=== PATIENT | female | born 1935 | race Caucasian/White ===

== ENCOUNTER 2017-04-10 11:00 | Inpatient (IN) | payer MEDICARE, BC ==
[~2017-04-10] VITALS: Ht 165.1 cm; Wt 87.0 kg
--- NOTE | ~2017-04-10 | DS ---
PATIENT'S NAME: MARCELO HUSAIN [facility] AGE: 82 Y [address] ROOM: [address] [address] LOCATION: GPCU ADMIT DATE: 04/10/2017 Discharge Summary DISCHARGE DATE: 04/15/2017 FAMILY PHYSICIAN: Jennyfer Ellington MD ATTENDING PHYSICIAN: Terry Coats PRINCIPAL DIAGNOSES: 1. Sick sinus syndrome, status post dual-chamber permanent pacemaker insertion. 2. Transient ischemic attack. 3. Dementia. 4. Multinodular goiter. 5. Paroxysmal atrial fibrillation, not on any anticoagulation. 6. Essential hypertension. HOSPITAL COURSE: Please reference any of the admitting data to the history and physical as dictated by Dr. Terry Coats. An 82-year-old female who presented to the outside hospital with symptomatic pauses as well as mental status changes with concern for stroke. CT scan showed a possible left MCA distribution stroke, but not definitive. She was placed in the Intensive Care Unit under the acute stroke management on tPA order set; and because of her symptomatic sinus pauses, temporary pacemaker was placed. Because of the need for urgent MRI, Cardiology went ahead and required removal of the pacing catheter. This was done without complication and then, after MRI was complete, a 2nd pacing catheter was done in the Intensive Care Unit at the bedside with confirmation by portable chest x-ray. She was observed on telemetry without complication. The MRI taken did not show any acute findings other than an aging brain. There was no evidence any acute stroke. Further investigation of the MRA of the neck did not show any stenosis. Echocardiogram showed a left ventricular ejection fraction at 65% to 70% with [id number] concentric left ventricular hypertrophy. The left atrium was moderately dilated. There is also noted severe annular calcification of posterior mitral valve leaflet. Giving us the impression that most likely this was transient ischemic attack given her paroxysmal AFib history, she was kept on aspirin and statin therapy as she had refused anticoagulation in the past. She then proceeded to have a dual-chamber pacemaker inserted with Dr. Eliseo Kauffman and Dr. Naik on 04/11/2017. She did receive preoperative and postoperative Ancef antibiotic. She tolerated the procedure well. She was made no weightbearing to the left shoulder and placed in immobilizer without any complication. Device function check was normal on postoperative day #1. She did require titration of her blood pressure medicine and anti-rhythm medicine to include amlodipine, spironolactone, and propafenone. She tolerated these medicines well. PATIENT'S NAME: MARCELO HUSAIN [facility] AGE: 82 Y [address] ROOM: [address] [place], [place] [address] LOCATION: GPCU ADMIT DATE: 04/10/2017 Discharge Summary DISCHARGE DATE: 04/15/2017 FAMILY PHYSICIAN: Jennyfer Ellington MD ATTENDING PHYSICIAN: Terry Coats The patient underwent MRI of the neck with incidental finding showing a large thyroid. Further investigation of her thyroid showed a normal TSH at 0.772 and a free T4 of 1.0. We went ahead and obtained a soft-tissue ultrasound of her neck, which showed an impression of a multinodular goiter with marked enlargement of the right lobe due to a dominant nodular mass occupying the central and lower gland. Appearance was nontoxic; therefore, no further workup was obtained. She also received physical, occupational, and speech therapy. Her cognition was evident of poor short-term memory consistent with findings of dementia. Neurology started the patient on Namenda 5 mg p.o. at bedtime with titrating dose in 1 week with goal therapy of 10 mg twice daily with further outpatient evaluation. The patient was felt stable enough for discharge; however, not well enough to go home. Care Management assisted and the patient will go to [place] swing bed for further restorative cares and observation of her condition. CONSULTING PROVIDERS: 1. Dr. Naik, Cardiology. 2. Dr. Kauffman, Cardiothoracic Surgery. 3. Dr. Robert Harris, Physiatry. 4. Dr. Virgil Lopez, Neurology. PROCEDURES: Temporary and permanent pacemaking placement by Dr. Kauffman and Dr. Naik. LABORATORY DATA: Pertinent lab findings to include: Negative cardiac enzymes. A pro-BNP of 304. Most recent CBC on 04/12/2017 was within normal limits with a white blood cell count of 7.1, hemoglobin of 12.4, hematocrit of 37.2, and platelet count of 146. Chemistry panel within the same showed no remarkable results on 04/12/2017 was glucose 103, BUN of 8, creatinine 0.7, sodium 140, potassium 3.6, chloride of 109, CO2 of 24, calcium 8.2, albumin is 2.9, phosphorus is 2.0, magnesium 2.1, and anion gap of 10.6. Cholesterol panel showed a total cholesterol of 171, triglyceride of 111, HDL of 40, and LDL 109. A urinalysis showed yellow clear with specific gravity 1.015, pH of 6.0, PATIENT'S NAME: MARCELO HUSAIN [facility] AGE: 82 Y [address] ROOM: [address] [place], [place] [address] LOCATION: GPCU ADMIT DATE: 04/10/2017 Discharge Summary DISCHARGE DATE: 04/15/2017 FAMILY PHYSICIAN: Jennyfer Ellington MD ATTENDING PHYSICIAN: Terry Coats leukocytes 100, nitrites negative, protein 15, glucose negative, ketone negative, urobilinogen normal, bilirubin negative. Microanalysis showed 10 blood, 5 to 10 white blood cells, 0 to 2 red blood cells, 5 to 10 epithelial cells, few bacteria, and 2+ amorphous material. Free T4 was 1.0. TSH was 0.772. RADIOLOGIC IMAGING: Include MRI of the brain with and without contrast showed an aging brain with no acute findings and no acute stroke. An MRA of the neck with and without contrast showed a large mass in the right neck, possible thyroid origin, with recommendations for soft-tissue of the neck CT. Essentially normal MRI with no stenosis. Chest x-ray showed temporary pacer placement and postoperative pacemaker placement in satisfactory position. Soft tissue of the neck thyroid showed multinodular goiter with marked enlargement of the right lobe due to the dominant nodule or mass occupying the central and lower gland measuring 59 x 65 x 54 mm. DISCHARGE MEDICATIONS: 1. Amlodipine 10 mg p.o. everyday. 2. Aspirin 325 mg p.o. everyday. 3. Lipitor 40 mg p.o. everyday. 4. Namenda 5 mg p.o. every night at bedtime, stop date 04/20/2017 at 2100 hours. 5. Namenda 5 mg p.o. twice daily, start date 04/21/2017 at 0900 hours. 6. Metoprolol succinate 25 mg p.o. everyday. 7. Protonix 40 mg p.o. everyday at 0700 hours. 8. Propafenone 150 mg p.o. 3 times daily. 9. Aldactone 25 mg p.o. everyday. 10. Tylenol 650 mg p.o. every 4 hours as needed for pain or fever. DISCHARGE INSTRUCTIONS: The patient will discharge to [facility] under the care of her primary care doctor, Dr. Jennyfer Ellington. I spoke with Dr. Ellington on the phone regarding the patient's hospitalization and transfer of care. She graciously accepted. The patient will transport by private auto with her family. Followup appointments with Neurology and Dr. Lopez in 1 month to titrate the Namenda according to discharge medication orders. She should also follow up with Dr. Naik in 2 weeks in [place]. PATIENT'S NAME: MARCELO HUSAIN [facility] AGE: 82 Y [address] ROOM: [address] [place], [place] [address] LOCATION: GPCU ADMIT DATE: 04/10/2017 Discharge Summary DISCHARGE DATE: 04/15/2017 FAMILY PHYSICIAN: Jennyfer Ellington MD ATTENDING PHYSICIAN: Terry Coats Diet is to remain cardiac low-fat, low-salt, low-cholesterol. Weightbearing status is no left upper extremity range of motion with immobilizer in place at all times and okay to remove for shower. Therapies to include occupational, physical, and speech therapy for cognitive reasons to evaluate and treat it as indicated. Her rehab potential is good. Her discharge potential is good. The patient and family are well aware of her condition and prognosis. All questions were answered with statements of satisfaction. We do recommend continued monitoring of her multinodular goiter as an outpatient perspective. Thank you for allowing us to participate in the care of this patient while at [facility]. ROBYN MARKS APRN, APRN FOR MD BERENICE ELMORE/harris /[id number] d: t: 04/16/17 0339, DISCHARGE SUMMARY
--- NOTE | ~2017-04-10 | CON ---
PATIENT'S NAME: MARCELO HUSAIN [facility] AGE: 82 Y [address] ROOM: [address] [address] LOCATION: GPCU ADMIT DATE: 04/10/2017 Consultation DISCHARGE DATE: FAMILY PHYSICIAN: GABBIE SAHNI MD ATTENDING PHYSICIAN: SHASTA SANTOS REFERRING PHYSICIAN: Eliseo Kauffman DO HISTORY OF PRESENT ILLNESS: This is an 82-year-old lady, who is transferred emergently from [place] because of symptomatic sick sinus syndrome with episodes of unconsciousness. She has a history of paroxysmal atrial fibrillation that was diagnosed several years ago and has not had recurrence on oral propafenone although her compliance with these medications is debatable. She also had history of hypertension and dyslipidemia but discontinued treatment for these conditions on her own. She has a degree of dementia, but she still lives in her own house, and her son lives next door. She presented to [facility] on with complaint of right facial edema and some facial droop. There was concern for a stroke, but CT of the head did not show any acute abnormalities. The patient was started on antibiotics. She was monitored on telemetry, and she had at least 2 episodes of long pauses associated with unconsciousness. At that point, I was consulted and I accepted the patient in transfer. REVIEW OF SYSTEMS: She can still drive locally. She is unable to manage her finances. She does not get lost. She does not have frequent falls. She has no history of cerebrovascular accident or myocardial infarction. Remaining systems negative. FAMILY HISTORY: Noncontributory. PHYSICAL EXAMINATION: VITAL SIGNS: She is 5 feet 5 inches. Weight is 89.3 kg. Blood pressure was on arrival at 126/60 with heart rate of 60. GENERAL: She was awake, consented verbally to the procedure, and denied any pain. HEAD: Normocephalic and atraumatic. NECK: Supple. No jugular venous distention. No carotid bruits. CHEST: Lungs are clear. HEART: Regular first and second heart sounds. ABDOMEN: Obese. LOWER EXTREMITIES: No peripheral edema. PLAN: We will proceed with emergent transvenous temporary pacing and then we will consult Dr. Kauffman for permanent device in a.m. PATIENT'S NAME: MARCELO HUSAIN [facility] AGE: 82 Y [address] ROOM: [address] [address] LOCATION: [facility] ADMIT DATE: 04/10/2017 Consultation DISCHARGE DATE: FAMILY PHYSICIAN: GABBIE SAHNI MD ATTENDING PHYSICIAN: SHASTA SANTOS Thank you for allowing me to participate in the care of your patient. EM BECKWITH MD PE/modrehana /[id number] d: 04/12/17101 t: 04/15/17 0802, CONSULTATION REPORT
--- NOTE | ~2017-04-10 | ECHO ---
Transthoracic Echocardiography Report (TTE) Demographics Patient Name MARCELO HUSAIN Date of Study 04/10/2017 Patient Number [id number] Visit Number [id number] Date of 1935 Room Number G6208 Gender Female Number Age 82 year(s) Referring [facility] Specialist Marlen Knox RDCS, Physician Terry RVT, RDMS, HAMMER HEATER Physician Interpreting Efstratiou Panayotis A Code And Test Clerk Physician MD Supervising Ordering Efstratiou Panayotis A MD/MLP Physician MD Nurse Stress Lumber Piler Conclusions Summary Technically difficult exam. The estimated left ventricular ejection fraction is 65-70%. Mild to moderate concentric left ventricular hypertrophy. The left atrium is moderately dilated by LA volume index measurement. Left pleural effusion noted. Severe annular calcification of the posterior MV leaflet. Normal right atrial size. Redundant interatrial septum. Device lead seen in the right atrium. Procedure Type of Study TTE procedure:2D Echocardiogram, M-Mode, Doppler , Color Doppler. Procedure Date Date: 04/10/2017 Start: 04:28 PM Study Location: Inpatient Portable Technical Quality: Fair due to body habitus. Indications:CVA. Additional Indications:Syncope Appropriate Use Criteria: 9 Patient Status: Timed Rhythm: NSR HR: 65 bpm BP: 129/59 mmHg M-Mode/2D Measurements LV Diastolic Dimension: 4.35 cm LV Systolic Dimension: 1.94 cm LV Septum Diastolic: 1.31 cm LV PW Diastolic: 1.22 cm Cardiac Output: 6.76 l/min LA volume: 93 ml RV Diastolic Dimension: 2.5 cm LVOT: 1.9 cm LVOT VTI: 36.7 cm LV Stroke volume: 104 ml RV Mid: 3.3 cm RV Length: 5.8 cm TAPSE: 2.5 cm TDI-S': 15 cm/s Doppler Measurements AV Peak Velocity: 1.49 m/s MV Peak E-Wave: 0.79 m/s AV Peak Gradient: 8.88 mmHg MV Peak A-Wave: 1.08 m/s AV Mean Gradient: 4 mmHg MV E/A Ratio: 0.73 LVOT Peak Velocity: 1.35 m/s MV P1/2t: 132 msec TR Gradient:17.14 mmHg PV Peak Velocity: 0.91 m/s Estimated RAP:8 mmHg PV Peak Gradient: 3.32 mmHg Estimated RVSP: 25 mmHg Estimated PASP: 25.14 mmHg E' Septal Velocity: 0.08 m/s A' Septal Velocity: 0.11 m/s E' Lateral Velocity: 0.07 m/s A' Lateral Velocity: 0.13 m/s Findings Left Ventricle Normal left ventricular systolic function. Normal left ventricular chamber size. Mild to moderate concentric left ventricular hypertrophy. Diastolic assessment reveals Grade I diastolic dysfunction. Right Ventricle Normal right ventricle structure and function. Left Atrium The left atrium is moderately dilated by LA volume index measurement. Right Atrium Normal right atrial size. Redundant interatrial septum. Device lead seen in the right atrium. Mitral Valve Severe annular calcification of the posterior MV leaflet. Cannot rule this out as a source of cardiac emboli. Moderate calcification of the mitral valve. Trivial mitral regurgitation by color Doppler. Mild mitral stenosis. Aortic Valve The aortic valve is mildly sclerotic. Tricuspid Valve Normal tricuspid valve structure and function. Trivial tricuspid regurgitation by color Doppler. Pulmonic Valve Normal pulmonic valve structure and function. Pericardial Effusion No evidence of pericardial effusion. Miscellaneous Visualized portions of the aortic root and ascending aorta appear normal in size. Pleural Effusion Left pleural effusion noted. Contractility Score LV regional wall motion:(0-Non visualized 1-Normal 2-Hypokinesis 3-Akinesis 4-Dyskinesis 5-Aneurysm) Signature dtt: Donnie Naik dtd: 04/10/17 1628 Physician Self Edit
--- NOTE | ~2017-04-10 | OR ---
PATIENT'S NAME: MARCELO HUSAIN [facility] AGE: 82 Y [address] ROOM: [address] [address] LOCATION: GPCU ADMIT DATE: 04/10/2017 OR/Procedure Report DISCHARGE DATE: FAMILY PHYSICIAN: GABBIE SAHNI MD ATTENDING PHYSICIAN: SHASTA SANTOS SURGEON: Em Beckwith MD MANAGER DAIRY: DATE OF PROCEDURE: 04/10/2017 PROCEDURE PERFORMED: Temporary transvenous pacemaker. INDICATIONS FOR PROCEDURE: The patient is an 82-year-old woman, who presented at the [facility] with recurrent loss of consciousness, and she was found to have an intermittent complete heart block. She was transported by air directly to the catheterization laboratory. Consent was obtained verbally. DESCRIPTION OF PROCEDURE: At that point, the transcutaneous pacing was discontinued as the patient had her own intrinsic rhythm. Under direct ultrasound guidance, I accessed the right internal jugular vein first with a micropuncture kit, and then upgraded to a 6-Maltese sheath. Under fluoroscopic guidance, I advanced a balloon-tipped bipolar pacing catheter to the right ventricular apex. We obtained a threshold of less than one milliampere. The pacing catheter was secured in place, and the plan is for the patient to receive a permanent device tomorrow. Five hours later, there was concern that the patient was having an acute ischemic stroke. The CT of the head in [place] was unrevealing, so an MRI was recommended. The radiologist required removal of the pacing catheter. After the magnetic resonance study was completed, I then inserted a second pacing catheter that was done at the bedside in the intensive care unit with electrocardiographic monitoring. The threshold was about one milliampere. The patient's catheter was secured in place. Portable chest x-ray showed that we were pacing the right ventricular outflow tract. POST-PROCEDURE PLAN: Plan remains for a permanent device in a.m. CONCLUSION: Successful transvenous pacing on two occasions as described above. EM BECKWITH MD PATIENT'S NAME: MARCELO HUSAIN [facility] AGE: 82 Y [address] ROOM: [place] [address] [facility] ADMIT DATE: 04/10/2017 OR/Procedure Report DISCHARGE DATE: FAMILY PHYSICIAN: GABBIE SAHNI MD ATTENDING PHYSICIAN: SHASTA SANTOS PE/harris /[id number] d: 04/11/172201 t: 04/16/17 1719, OPERATIVE SUMMARY
--- NOTE | ~2017-04-10 | OR ---
PATIENT'S NAME: MARCELO HUSAIN [facility] AGE: 82 Y [address] ROOM: [place] [address] LOCATION: GPCU ADMIT DATE: 04/10/2017 OR/Procedure Report DISCHARGE DATE: 04/15/2017 FAMILY PHYSICIAN: Jennyfer Ellington MD ATTENDING PHYSICIAN: Terry Coats SURGEON: Eliseo Kauffman DO SUPERVISOR MACHINE SETTER: DATE OF PROCEDURE: 04/11/2017 PREOPERATIVE DIAGNOSIS: Sick sinus syndrome with ventricular pauses greater than 3 seconds. POSTOPERATIVE DIAGNOSIS: Sick sinus syndrome with ventricular pauses greater than 3 seconds. PROCEDURE PERFORMED: Insertion of dual-chamber permanent pacemaker. SURGEON: Donnie Naik MD PROCTORING SURGEON: Eliseo Kauffman DO DESCRIPTION OF PROCEDURE: Mrs. Husain is an 82-year-old white female with the above-noted diagnosis. She has been brought to the operative suite today, sterilely prepped and draped in the usual fashion. Appropriate IV sedation was achieved, 1% lidocaine was used to infiltrate the left infraclavicular space, and Dr. Naik began the procedure. He accessed the left subclavian vein x2, and guidewires were placed under fluoroscopic guidance into the right atrium. An incision was created, and a pocket was formed. Electrocautery was used for hemostasis. Via sheath and dilator assembly, we began to place our leads. The ventricular lead was placed first. It is a [employer] Wanshenevity MRI lead, model 7741, serial #[id number]. It is sensing R-waves of 5.9 mV with a voltage threshold of 0.6 V at 0.5 msec and a pacing impedance of 925 ohms with voltage threshold of 0.7 mA. In a similar fashion, atrial lead was placed into the right atrial appendage. It is a [employer] Ingevity MRI lead, model 7740, serial #[id number]. Sensing P- waves of 2.3 mV with a voltage threshold of 0.9 V at 0.5 msec and pacing impedance of 587 ohms. All leads were now connected to the generator which is a [employer], model L111, serial #[id number]. Leads and generator were placed into the pocket. Appropriate sensing and pacing were noted. The patient was paced DDDR, lower rate limit of 60, maximal tracking rate of 130. The incision was then closed in a layered fashion with 2-0 Vicryl and 4-0 Monocryl, and a pressure dressing was applied. Dr. Naik performed all the portions of this procedure under my direct proctoring. PATIENT'S NAME: MARCELO HUSAIN [facility] AGE: 82 Y [address] ROOM: [place] [address] LOCATION: GPCU ADMIT DATE: 04/10/2017 OR/Procedure Report DISCHARGE DATE: 04/15/2017 FAMILY PHYSICIAN: Jennyfer Ellington MD ATTENDING PHYSICIAN: Terry Coats DO HUNG AVALOS/harris /[id number] d: 04/21/174 t: 04/21/17 2115, OPERATIVE SUMMARY
--- NOTE | ~2017-04-10 | HP ---
PATIENT'S NAME: MARCELO HUSAIN [facility] AGE: 82 Y [address] ROOM: [address] [place] [id number] LOCATION: [facility] ADMIT DATE: 04/10/2017 History & Physical DISCHARGE DATE: FAMILY PHYSICIAN: GABBIE SAHNI MD ATTENDING PHYSICIAN: SHASTA SANTOS DATE OF SERVICE: CHIEF COMPLAINT: Symptomatic bradycardia, cardiac pauses, acute CVA. HISTORY OF PRESENT ILLNESS: This is an 82-year-old female with history of paroxysmal atrial fibrillation, hypertension, and hyperlipidemia who was transferred over to us from [place] after having brief onset of changes in mental status and several 4 to 5- second pauses with significant changes in mentation monitored on tele and was urgently transferred over here for evaluation. The patient was taken directly to the high density press laborer, had an urgent temporary pacemaker placed, and was transferred to the ICU for monitoring. The patient initially presented to [place] yesterday after her son noticed facial droop earlier in the day, which was around 9 or 10'o clock in the morning. He then, later in the afternoon, took her to the emergency room at [place] for evaluation. The patient was admitted and had a CT scan without contrast done which was unremarkable, and the very next day, she was having changes in mentation, likely due to pauses that she was having. In any case, she had a repeat CAT scan done which showed some possible concerning signs for an acute stroke in the left MCA distribution. The patient, during my evaluation today, is awake, alert, and oriented x3. She does have visible facial droop; however, does not appear to be slurring her speech, but did have symptoms of dysarthria on initial presentation yesterday. Although her facial droop is still visible, the patient's son also agrees that her speech is pretty much back to normal at this point. The patient otherwise denies any chest pain, shortness of breath, dizziness, or lightheadedness. Denies any fevers or chills as well. PAST MEDICAL HISTORY: 1. Paroxysmal atrial fibrillation, not on anticoagulation. 2. Essential hypertension. SOCIAL HISTORY: The patient lives at home by herself, but son lives right next to her and helps her out. Denies any smoking, alcohol, or drug use. FAMILY HISTORY: The patient has a history of diabetes in her mother and history of cancer in her father. PATIENT'S NAME: MARCELO HUSAIN [facility] AGE: 82 Y [address] ROOM: [address] [place], [place] [address] LOCATION: [facility] ADMIT DATE: 04/10/2017 History & Physical DISCHARGE DATE: FAMILY PHYSICIAN: GABBIE SAHNI MD ATTENDING PHYSICIAN: SHASTA SANTOS REVIEW OF SYSTEMS: All systems have been reviewed and are all negative except as described in the HPI. PHYSICAL EXAMINATION: VITAL SIGNS: Afebrile, blood pressure 126/71, heart rate 67, and saturating 98% on room air. GENERAL: The patient is awake, alert, and oriented x3. In no acute distress. HEENT: Pupils equal and reactive to light and accommodation. No scleral icterus or conjunctival pallor noted. NEUROLOGIC: The patient has visible left-sided facial droop. She has 4/5 strength in all 4 of her extremities. CHEST: Clear to auscultation bilaterally. HEART: S1 and S2, regular rate and rhythm. ABDOMEN: Soft, nontender, and nondistended. EXTREMITIES: Without edema. SKIN: Scaly patches on bilateral feet consistent with fungal infection. MUSCULOSKELETAL: No joint tenderness, effusion, or erythema noted. LABORATORY AND DIAGNOSTIC DATA: CT scan showing possible left MCA distribution stroke, but not definite. ASSESSMENT AND PLAN: 1. Acute cerebrovascular accident. The patient initially presenting with dysarthria and facial droop. Dysarthria has since resolved, and facial droop is still present. CT scan of her head, which was initially negative. She presented to [place], and repeat scan showing some signals that might suggest a left middle cerebral artery distribution stroke. The patient presented outside the tPA window to [place] last night. We will get MRI and MRA of head and neck and involve Neurology and evaluate. In the meantime, we will start medical management with a statin and aspirin therapy and await Neurology recommendation. 2. Symptomatic sinus pauses. The patient was having 2 to 3 episodes of unresponsiveness at [place] earlier this morning. The patient now has a temporary pacemaker placed, and the plan is to put a permanent pacemaker in the next day or two. 3. Paroxysmal atrial fibrillation. The patient is on rhythm control and rate control medications of metoprolol and propafenone at home. Not on full-dose anticoagulation. Dr. Naik will follow along. 4. Essential hypertension. We will allow for permissive hypertension in the setting of acute stroke and evaluate. 5. Deep venous thrombosis prophylaxis. We will use SCDs for now until degree of stroke is evaluated. PATIENT'S NAME: MARCELO HUSAIN [facility] AGE: 82 Y [address] ROOM: [place] [address] LOCATION: [facility] ADMIT DATE: 04/10/2017 History & Physical DISCHARGE DATE: FAMILY PHYSICIAN: GABBIE SAHNI MD ATTENDING PHYSICIAN: SHASTA SANTOS SHASTA SANTOS MD BG/modl /[id number] D: [id number] T: [id number] HISTORY & PHYSICAL
--- NOTE | ~2017-04-10 | CON ---
PATIENT'S NAME: MARCELO HUSAIN [facility] AGE: 82 Y [address] ROOM: [place] [address] LOCATION: [facility] ADMIT DATE: 04/10/2017 Consultation DISCHARGE DATE: FAMILY PHYSICIAN: GABBIE SAHNI MD ATTENDING PHYSICIAN: SHASTA COATS REFERRING PHYSICIAN: Eliseo Kauffman, DO A consult for Dr. Coats, hospitalist. HISTORY OF PRESENT ILLNESS: This 82-year-old lady, who lives alone next door to her son, who was farming and checks on her regularly, but also states that he is too busy sometimes. She was admitted on 04/10/2017 with brief mental changes, confusion, and left facial droop with no definitive weakness in bilateral upper and lower extremities. She was seen at the outstretching site. CT scan reportedly showed no acute changes. She initially was also dysarthric and was trying to make her words clearer by making more effort to pronounce the words; however, all that has now improved including the facial droop. She denied any shortness of breath, but she continues to be confused and unable to orient herself to place and time. She has no chest pain. No shortness of breath. No similar condition in the past. No cough. No chills. Denied any dizziness. No lightheadedness. No visual cut and/or neglect. PAST MEDICAL HISTORY: 1. She is, at the present time, giving history of paroxysmal atrial fibrillation, not on anticoagulant. 2. Hypertension, essential. PHYSICAL EXAMINATION: NEUROLOGIC: She is now alert, not quite able to orient herself to place and time, and she is not remembering practically. She has no good memory unless it is very distant. Tongue and soft palate are moving symmetrical. Her voice is clear, and she can swallow both solids and fluids without difficulty. She can control her bowel and bladder. She is able to move all four with muscle strength of 4- to 4 over 5. PATIENT'S NAME: MARCELO HUSAIN [facility] AGE: 82 Y [address] ROOM: [place] [address] LOCATION: [facility]PCU ADMIT DATE: 04/10/2017 Consultation DISCHARGE DATE: FAMILY PHYSICIAN: GABBIE SAHNI MD ATTENDING PHYSICIAN: SHASTA COATS MEDICATIONS: She is on the following medications: 1. Amlodipine besylate. 2. [place]. 3. NaCl. 4. Tylenol. 5. Lipitor. 6. Aspirin. 7. Protonix. 8. Cefazolin. 9. Lipitor. LABORATORY DATA: MRI on April 10, 2017, is showing no acute finding. ASSESSMENT AND PLAN: I feel this lady is doing well. She should continue on outpatient if she continues to do well; however, the problem will be to keep her safe. She should be supervised at all times, and I have also advised her strongly not to drive. I will follow alongside with her. If she is discharged, I want to see her in my office in about 10 days. All the above was explained to her in detail and to her son. They verbalized understanding, and I answered all their questions. Thank you for this referral. I will follow alongside with you. SUSAN SEALS MD WMS/modl /[id number] d: 04/12/17 1157 t: 04/13/17 0759, CONSULTATION REPORT
--- NOTE | ~2017-04-10 | CON ---
PATIENT'S NAME: KEYA HUSAIN [facility] AGE: 82 Y [address] ROOM: [address] [address] LOCATION: [facility]PCU ADMIT DATE: 04/10/2017 Consultation DISCHARGE DATE: 04/15/2017 FAMILY PHYSICIAN: Jennyfer Ellington MD ATTENDING PHYSICIAN: Terry Coats DATE OF CONSULTATION: 04/14/2017 REFERRING PHYSICIAN: Eliseo Kauffman, DO NEUROLOGIC CONSULTATION REASON FOR CONSULTATION: The patient was seen on neurologic consultation on 04/14/2017 at the request of Dr. Coats. HISTORY OF PRESENT ILLNESS: Ms. Keya Husain is an 82-year-old female patient with a history of paroxysmal atrial fibrillation, hypertension, and hyperlipidemia. The patient came here from her home in [place] with some brief issues consistent with some confusion. Changes with confusion were very brief and associated with fuzzes in her mentation as far as answering questions and causing brief confusion states. It seems as though the family was saying that she was confused for upwards of 4 to 5 seconds only. They took her into the emergency room and put her on the traffic monitor specialist. They noticed that she was having symptomatic pauses on her EKG. The patient was transferred here for evaluation of her cardiac dysrhythmia and was immediately taken to the catheterization laboratory and had an urgent temporary pacemaker placed present in the ICU. There was a question as to whether the patient actually had a little bit of a facial droop on the morning upon her presentation but by the afternoon, the facial droop was gone. The patient had no evidence of any slurring. She denied she had any focal weakness. There was a question on CAT scan as to whether there was an artifact seen that was suggestive of a left MCA distribution stroke or an older stroke. However, the patient did successfully have an MRI of the brain here, which showed no evidence to support an acute stroke and the MRI was performed after the temporary pacing wire was taken out. The patient does not have any visible facial droop and there is no evidence of any speech deficits. She has a normal mental status and is answering questions appropriately but she clearly has lapses in her short-term memory, which was focused in on this visit. PAST MEDICAL HISTORY: Essential hypertension, paroxysmal atrial fibrillation. She is not on anticoagulation. The patient does live by herself, but she has sons that live near her house who do help her out and come by often. She denies any alcohol or drug use or smoking. PATIENT'S NAME: KEYA HUSAIN [facility] AGE: 82 Y [address] ROOM: [address] [place], [place] [address] LOCATION: GPCU ADMIT DATE: 04/10/2017 Consultation DISCHARGE DATE: 04/15/2017 FAMILY PHYSICIAN: Jennyfer Ellington MD ATTENDING PHYSICIAN: Terry Coats FAMILY HISTORY: Consistent with diabetes in mother and history of cancer in father. CURRENT MEDICATIONS: Include memantine 5 mg p.o. b.i.d. started today at 5 mg p.o. daily, Toprol 25 mg p.o. daily, amlodipine 10 mg p.o. daily, propafenone 150 mg p.o. b.i.d., spironolactone 25 mg p.o. daily, atorvastatin 40 mg p.o. daily, and aspirin 325 mg p.o. daily. REVIEW OF SYSTEMS: Ms. Husain is an 82-year-old female patient who likely has early dementia. She had some episodes that were suggestive of brief alteration in her sensorium. It was found on cardiac rhythm that she was having events of pauses on her EKG. She had a temporary pace wire placed and the patient was taken for an MRI, which does not reveal any evidence of a stroke. PHYSICAL EXAMINATION: GENERAL: The patient is sitting upright in the chair. She is friendly. She answers questions appropriately. She is an 82-year-old female, in no acute distress. VITAL SIGNS: Revealed pulse of 70, respirations 16, blood pressure 120/57, temperature 36.7. NEUROLOGIC: Cranial nerves II through XII were intact. Motor exam reveal 5/5 power in the upper and lower extremities, proximally and distally. There are normal bulk and tone of the muscles. Rapid alternating hand movements are normal. There is normal [id number] and the patient is able to stand up on her own volition, walk with normal narrow based gait. Negative Romberg. As to the patient's mental status, the patient had very poor ability to remember 2/5 objects recalled on immediate recall, she was 0/5 recall by 5 minutes. She was conversational, but during the conversation, she certainly was confused as to season, date. She is 82 years old, but she thought that she was going back to her home to be with her parents. She seemed to correct the fact that her parents had likely but repeated again later in conversation that she is going home to her house to be with her parents, had very poor insight into the nature of why she was here in the hospital. She seemed to have knowledge of having a cardiac pacemaker in place. She did not seem to be, however, delirious or confused, was unable to do basic math problems such as serial sevens, was able to identify objects and parts of objects easily and read normally but basic pattern recognition, clock drawing was actually not performed well. She has poor global insight doing basic puzzles and she has diminished vocabulary. In general, I do believe the patient has dementia backed up by many nurses whom I have spoken to. She denies that she has any recent sudden confusion state. The patient looks otherwise calm and tries to engage in conversation, but it is very superficial. I usually do not start a PATIENT'S NAME: EKYA HUSAIN [facility] AGE: 82 Y [address] ROOM: [address] [place] [address] LOCATION: GPCU ADMIT DATE: 04/10/2017 Consultation DISCHARGE DATE: 04/15/2017 FAMILY PHYSICIAN: Jennyfer Ellington MD ATTENDING PHYSICIAN: Terry Coats dementia medication in the hospital as I often do not know if the patient has some confounding issues with medications and shows no signs of delirium or ongoing infection. I would like to start her on Namenda 5 mg daily for one week, then increase its dosing to 5 mg twice a day. We would like to have the patient follow up with us after she goes to a swing bed for a time period. This may be in about 1-2 months. At that time, we can slowly push up the Namenda to a target dose of 10 mg twice a day. I do appreciate the Hospitalist Service for allowing me to participate in the care of Ms. Keya Husain. MD GALEN CASTELLON/harris /[id number] d: 04/15/172057 t: 04/16/17 0039, CONSULTATION REPORT
[2017-04-10 16:48] LABS: BASOPHIL % 0.2 %; HEMATOCRIT 39.8 % (30.0-46.0); HEMOGLOBIN 13.2 g/dL (10.0-15.0); IMMATURE GRANULOCYTE % 0.2 %; LYMPHOCYTE # 0.9 K/uL (0.8-4.0); LYMPHOCYTE % 11.4 %; MCH 29.3 pg (27.0-34.0); MCHC 33.2 gm/dL (32.0-36.5); MCV 88.2 fl (83.0-98.0); MONOCYTE # 0.2 K/uL (0.0-1.0); MONOCYTE % 2.4 %; MPV 10.1 fl (9.4-12.4); NEUTROPHIL # (ANC) 6.9 K/uL (1.8-7.8); NEUTROPHIL % 85.8 %; NRBC % 0 /100WBC (0-0.00); PLATELET COUNT 155 K/uL (150-450); RBC 4.51 M/uL (3.00-5.00); RDW-CV 12.5 % (11.9-14.6); WBC 8.1 K/uL (4.0-11.0)
[2017-04-10 16:52] LABS: INR - (THERAPEUTIC) 1.02 (0.92-1.07); PROTIME 10.7 SECONDS (9.8-11.4)
[2017-04-10 17:00] LABS: ALBUMIN 3.3 gm/dL (3.5-5.0); ANION GAP 13.2 (10.0-19.0); CALCIUM 8.2 mg/dL (8.5-10.5); CREATININE 0.8 mg/dL (0.5-1.1); MAGNESIUM 2.5 mg/dL (1.8-2.6); PHOSPHORUS 2.9 mg/dL (2.5-4.9); POTASSIUM 4.2 mMol/L (3.7-5.1)
--- NOTE | 2017-04-10 19:45 | NUR ---
Significant Event: Alert to self, age and . Unsure of month, year or location. Pupils 3mm brisk. Denies N/T. Equal strong strength throughout all extremities. SBP 110-140's, HR 60-80's, APaced 50, sensitivity 0.5, conduction 50, strong pulses throughout. LUE 2+ edema to hand. L.S. clear and diminished in lower lobes on RA. B.S. active, last BM 04/09. Urinates per SBA. Accuchecks Q6H. Cardiac diet, NPO at midnoc. Follow up: MRI this afternoon, MRA neck. Temp pacemaker re-insertion.
--- NOTE | 2017-04-10 19:51 | NUR ---
82 YO Female, yesterday AM son states her L) face was shifted and had swelling to R) eye, suspected stroke and sent to [facility] where CT was performed, report was given the CT was negative. Son wanted Keya to be transferred to the Hospital and was uncomfortable with her current state. She stayed the night, woke up in the AM and was transferring from the bed when her HR dropped 20-30's and became nauseated and pale in color. 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 Past Medical Hx: Paraxosymal Afib, HTN, dementia.
[2017-04-10 21:42] LABS: BILIRUBIN URINE NEGATIVE (NEGATIVE); BLOOD URINE 10 /UL (NEGATIVE); COLOR URINE YELLOW (YELLOW); GLUCOSE URINE NEGATIVE (NEGATIVE); KETONE URINE NEGATIVE (NEGATIVE); LEUKOCYTES URINE 100 /UL (NEGATIVE); NITRITE URINE NEGATIVE (NEGATIVE); PROTEIN URINE 15 mg/dL (NEGATIVE); SPEC GRAVITY URINE 1.015 (1.003-1.035); TURBIDITY URINE CLEAR (CLEAR); UROBILINOGEN URINE NORMAL (NORMAL)
[2017-04-10 21:50] LABS: AMORPHOUS URINE 2+ (NEGATIVE); BACTERIA URINE FEW (NEGATIVE); RBC URINE 0-2 #/HPF (NEGATIVE)
--- NOTE | 2017-04-11 04:27 | NUR ---
Significant Event: Patient is alert and oriented to person only. Impaired recent memory. NIHSS 0. Temporary pacer reinserted at bedside. Rate 50, output 5, sensitivity 0.5. SBPs 100s-120s. HR 50s-70s. NPO since midnight for possible pacemaker placement. Voids w/ bedside commode. 1 assist. Denies pain. Follow up: Possible permanent pacemaker placement
[2017-04-11 05:01] LABS: BASOPHIL % 0.3 %; EOSINOPHIL # 0.1 K/uL (0.0-0.5); EOSINOPHIL % 0.7 %; HEMATOCRIT 38.1 % (30.0-46.0); HEMOGLOBIN 12.8 g/dL (10.0-15.0); IMMATURE GRANULOCYTE % 0.3 %; LYMPHOCYTE % 30.4 %; MCH 29.4 pg (27.0-34.0); MCHC 33.6 gm/dL (32.0-36.5); MCV 87.4 fl (83.0-98.0); MONOCYTE # 0.4 K/uL (0.0-1.0); MONOCYTE % 5.2 %; MPV 9.7 fl (9.4-12.4); NEUTROPHIL # (ANC) 4.2 K/uL (1.8-7.8); NEUTROPHIL % 63.1 %; NRBC % 0 /100WBC (0-0.00); PLATELET COUNT 133 K/uL (150-450); RBC 4.36 M/uL (3.00-5.00); RDW-CV 12.5 % (11.9-14.6); WBC 6.7 K/uL (4.0-11.0)
[2017-04-11 05:20] LABS: ALBUMIN 2.9 gm/dL (3.5-5.0); ANION GAP 10.8 (10.0-19.0); CREATININE 0.6 mg/dL (0.5-1.1); MAGNESIUM 2.4 mg/dL (1.8-2.6); PHOSPHORUS 2.4 mg/dL (2.5-4.9); POTASSIUM 3.8 mMol/L (3.7-5.1)
--- NOTE | 2017-04-11 10:53 | NUR ---
1050 PATIENT OFF UNIT WITH SURGERY STAFF TO GO GET PERMANENT PACEMAKER.
--- NOTE | 2017-04-11 12:27 | NUR ---
CHEST XRAY BEING DONE NOW
[2017-04-11] MEDS ORDERED: RYTHMOL150 MG PO (14:18)
--- NOTE | 2017-04-11 14:35 | NUR ---
Introduced self and role of care management to patient's family as she is still in surgery. Patient lives in [facility]. by herself. Her son lives right next door. She has been able to do her own ADL's but it is getting much harder for her to complete. He states that he does help her as much as possible. He states that for the last 6 months he has tried to get her to have meals on wheels, someone come in to help with the cleaning but she refuses. They are intrested in her going to the [place] [facility] on discharge. I did explain that she would have to have a 3 midnight qualifing stay in order for Medicare to help pay. Her son did mention that she was in the hospital in [place] since Friday. I did check and that was an observation stay. I did call and make a referral to Anupama Dumas the SWB Coordinator at [facility]. She stated that they could take her if she got her 3 midnights but being a holiday weekend they would not accept until Friday. Referral information faxed. Will continue to follow.
--- NOTE | 2017-04-11 16:27 | NUR ---
1050 PATIENT TAKEN OFF UNIT FOR PACEMAKER IMPLANT WITH AUGUSTINA SLAUGHTER.
--- NOTE | 2017-04-11 16:28 | NUR ---
1330 BACK ON UNIT WITH RN AND TRANSPORT.
--- NOTE | 2017-04-11 17:48 | NUR ---
PATIENT IS AAOX1. WHEN GIVEN OPTIONS SHE CAN AND EVENTUALLY WILL CHOOSE THAT SHE IS IN A HOSPITAL AND IT IS 2017. SHE KNOWS HER FAMILY. SHE BECAME MORE LUCID THE DAY HAS GONE ON. AT 0700, SHE WAS ASKING WHEN HER PARENTS WOULD BE HERE. SHE HAS A GOOD SENSE OF HUMOR AND WITHIN A SMALL CONVERSATION A PERSON MAY NOT RECOGNIZE HER DEMENTIA. SHE HAS HAD NO COMPLAINTS OF PAIN BEFORE OR AFTER THE PROCEDURE. HER PERMANENT PACER IS SET @ 60. SHE IS ON ROOM AIR. SHE IS ON A CARDIAC DIET AND HAS EATEN WELL WITH NO NAUSEA. HER PIV FLUSH BUT DO NOT RETURN BLOOD. SHE VOIDS TO [facility] AND HAS HAD A BOWEL MOVEMENT TODAY AT THE BEDSIDE [facility]. SHE CAN WALK WITH ASSISTANCE. A SLING IS TO HER LEFT ARM BUT SHE CAN NOT REMEMBER TO NOT LIFT IT UP SO ANOTHER SLING HAS BEEN ORDER TO HELP IT NOT BE SO EASY TO MOVE AROUND. ICE PACK TO THE SITE CURRENTLY. PATIENT SPEECH BEEN CLEAR TODAY, NO SLURRING OF WORDS. SHE FOLLOWS COMMANDS AND MOVES ALL EXTREMITITES. SHE HAS BEEN AFEBRILE.
--- NOTE | 2017-04-12 05:26 | NUR ---
Pt remains stable. Report called to SUMAYA Pelletier $SUKHJINDER hSeth. Pt transfering to U
[2017-04-12 06:42] LABS: BASOPHIL % 0.4 %; EOSINOPHIL # 0.1 K/uL (0.0-0.5); EOSINOPHIL % 1.3 %; HEMATOCRIT 37.2 % (30.0-46.0); HEMOGLOBIN 12.4 g/dL (10.0-15.0); IMMATURE GRANULOCYTE % 0.3 %; LYMPHOCYTE # 1.4 K/uL (0.8-4.0); LYMPHOCYTE % 19.9 %; MCH 28.7 pg (27.0-34.0); MCHC 33.3 gm/dL (32.0-36.5); MCV 86.1 fl (83.0-98.0); MONOCYTE # 0.4 K/uL (0.0-1.0); MONOCYTE % 5.5 %; MPV 9.5 fl (9.4-12.4); NEUTROPHIL # (ANC) 5.2 K/uL (1.8-7.8); NEUTROPHIL % 72.6 %; NRBC % 0 /100WBC (0-0.00); PLATELET COUNT 146 K/uL (150-450); RBC 4.32 M/uL (3.00-5.00); RDW-CV 12.4 % (11.9-14.6); WBC 7.1 K/uL (4.0-11.0)
[2017-04-12 06:53] LABS: ALBUMIN 2.9 gm/dL (3.5-5.0); ANION GAP 10.6 (10.0-19.0); CALCIUM 8.2 mg/dL (8.5-10.5); CREATININE 0.7 mg/dL (0.5-1.1); MAGNESIUM 2.1 mg/dL (1.8-2.6); POTASSIUM 3.6 mMol/L (3.7-5.1)
--- NOTE | 2017-04-12 14:49 | NUR ---
Pt up in recliner. Able to make needs known. Ambulates to bathroom with standby assist, however pt has short term memory deficits. High fall risk. Bed and chair alarms utilized. New orders for spironolactone and Propafenone as well as U/S thyroid,Free T4,TSH. Family here to visit.
--- NOTE | 2017-04-12 17:20 | NUR ---
Significant Event: A/OX2, NOT TO PLACE OR MONTH, BUT DOES KNOW YEAR, FORGETUL. VSS ON ROOM AIR. NO PAIN. LEFT SUBCLAVIAN PACEMAKER SITE OPEN TO AIR, INCISION IS CLOSED, NO DRAINAGE NOTED. LEFT ARM IMMBOLIZER IS ON. FAMILY HERE. UP 1 ASSIST. SLIV TO R)FA. PT. WON'T D/C UNTIL FRIDAY, NEEDS SWB PLACEMENT, FAMILY REFUSES TO TAKE PT. HOME. Follow up: CONTINUE WITH POC.
--- NOTE | 2017-04-13 04:16 | NUR ---
Pt alert to self. Needs alarms on- non compliant with calling for assistance. Orders from MD for pt to be assisted with all transfers for her safety. VSS on RA, afebrile. PPM site CLAY MINER. Tender and slightly swollen but denies pain unless touching it. L arm immoblizer in place. IV's SL. no bm this shift. Plan: discharge on to Swingbed
--- NOTE | 2017-04-13 16:20 | NUR ---
Significant Event: ALERT TO SELF, ALARMS ON AT ALL TIMES. NO PAIN. PACEMAKER SITE INCISION TO CLOSED/OPEN TO AIR, NO DRAINAGE NOTED. DAUGHTER HERE ALL DAY. PT. GETS UP SBA TO BATHROOM, WALKED IN TERRY X1 WITH PT, UP IN CHAIR MOST OF THE SHIFT. IV'S ARE SALINE LOCKED. ACCU-CHECKS FROM STROKE SCALE ORDERS WERE D/C'D TODAY. WAITING ON SWB PLACMENT ON FRIDAY. VSS ON RA, SBP 130-140'S TODAY. Follow up: CONTINUE WITH POC.
--- NOTE | 2017-04-14 01:33 | NUR ---
Significant Event: ALERT/ORIENTED TO SELF ONLY. BED/CHAIR ALARMS ON AT ALL TIMES. DENIES PAIN/NAUSEA. PACEMAKER SITE L) SUBCLAVIAN CLOSED/APPROXIMATED AND OPEN TO AIR. L) ARM IMMOBILIZER IN PLACE. VSS AND AFEBRILE. AWAITING PLACEMENT THIS WEEK. Follow up:
--- NOTE | 2017-04-14 04:19 | NUR ---
Pt alert to self. JENNIFER immobilizer in place as pt is non compliant with PPM precautions. VSS on RA, Afebrile. Denies pain. PPM CDI JOCELYNE. SBA Plan: SB on
--- NOTE | 2017-04-14 16:06 | NUR ---
Significant Event: Alert, confused but pleasant and cooperative. Denies pain. Up with 1 assist. VSS on RA. plan for dismissal to SB 04/15. Follow up:
--- NOTE | 2017-04-15 04:46 | NUR ---
pt alert to self mostly. vss on ra, afebrile. ppm site cdi/sy. JENNIFER immobilizer in place. bm this shift. denies pain. Dr. vieira saw and started her on namenda. She is to follow up with him in 2-3 weeks outpatient Plan: d/c today to swingbed
--- NOTE | 2017-04-15 10:30 | NUR ---
Faxed updated referral information to Anupama HOPKINS coordinator at [facility].
--- NOTE | 2017-04-15 10:45 | NUR ---
Received a call from Anupama Newton at [facility]. They can accpet patient for SWB today. I updated patient and family. Updated Celina SLAUGHTER & Macho Gorman APRN. Orders faxed by Veronika HICKS.
--- NOTE | 2017-04-15 13:05 | NUR ---
Patient a/o. VSS on RA. Denies pain. Tylenol given this AM for c/o "stiffness". Up with 1 assist. Arm immobilizer to L) arm. Pacer site remains well approximated and open to air with skin glue. Family supportive and at bedside. Dismiss to [place] SB today. Will call report to RN.
--- NOTE | 2017-04-15 13:07 | NUR ---
NOT APPROPRIATE FOR CVA DIET ED. INTAKE USUALLY 75-100%. DISCHARGE PLANNED TODAY. PT MOVED TO NO RISK, WILL ASSIST IF NEEDED.
== END 2017-04-15 13:35 | disposition swing bed (61) | DRG 66 ==
LOC: GNTU 12:25 → GICU 12:25 → GPCU 04-12 05:45
PROVIDERS: ADMIT Internal Medicine
PROC: B246ZZZ Ultrasonography of Right and Left Heart (ICD-10-PCS; principal; 2017-04-10)
PROC: 5A1223Z Performance of Cardiac Pacing, Continuous (ICD-10-PCS; principal; 2017-04-10)
PROC: F00ZJWZ Instrumental Swallowing and Oral Function Assessment using Swallowing Equipment (ICD-10-PCS; 2017-04-11)
DX: I63.512 Cerebral infarction due to unspecified occlusion or stenosis of left middle cerebral artery (principal); I49.5 Sick sinus syndrome; F03.90 Unspecified dementia, unspecified severity, without behavioral disturbance, psychotic disturbance, mood disturbance, and anxiety; R29.810 Facial weakness; I48.0 Paroxysmal atrial fibrillation; E04.2 Nontoxic multinodular goiter; I10 Essential (primary) hypertension; I45.5 Other specified heart block; R47.1 Dysarthria and anarthria
CPT/HCPCS: C1779; C1785; C1898; J0690; J7030

== ENCOUNTER → 2017-04-10 | Outpatient (CLI) | payer MEDICARE, BC ==
[~2017-04-10] MED LIST: RYTHMOL150 MG PO
== END | disposition disaster alternative care site (69) ==
LOC: GAIR 10:56
DX: I49.9 Cardiac arrhythmia, unspecified (principal); R40.20 Unspecified coma; R11.0 Nausea; Z79.82 Long term (current) use of aspirin; Z79.899 Other long term (current) drug therapy; Z95.818 Presence of other cardiac implants and grafts
CPT/HCPCS: A0422; A0431; A0436; J2405